=== PATIENT | male | born 1935 | race Caucasian/White ===

== ENCOUNTER → 2016-07-30 | Outpatient (CLI) | payer MEDICARE, OTHER ==
--- NOTE | 2016-07-30 11:58 | RADONC ---
RADIATION ONCOLOGY FOLLOWUP NOTE DATE: 07/30/2016 RADIATION ONCOLOGY CHART NUMBER: [id number]. DIAGNOSIS: Prostate cancer. STAGE: IIB, [id number]. ECOG PERFORMANCE STATUS: 0 FOLLOWUP NOTE: Mr. Doe is a very pleasant 80-year-old white male with the diagnosis of a stage IIB, [id number] poorly differentiated [place] score 9 (4-5) adenocarcinoma of prostate who is presenting to us today for routine followup visit 2 years and 1 month post completion of external beam radiation therapy. The patient presents today reporting that he is doing quite well with no complaints at this time related to his radiation therapy or disease. He has no urinary or bowel difficulties and no bone pain. REVIEW OF SYSTEMS: The patient's review of systems is otherwise noncontributory. He denies nausea, vomiting, fevers, chills, night sweats, diplopia, headaches, anxiety or depression, anorexia, weight loss, visual disturbances, chest pain, urinary or bowel difficulties, bone pain or neurological problems. PHYSICAL EXAMINATION: The patient is a well-developed, well-nourished male in no acute distress. HEENT exam is normocephalic, atraumatic. Extraocular movements are intact. There is no palpable cervical, supraclavicular, infraclavicular, axillary, or inguinal lymphadenopathy present. Lungs are clear to auscultation and percussion. Heart has a regular rate and rhythm. Abdomen is benign with no hepatosplenomegaly, masses, or tenderness. Rectal examination reveals a normal anal sphincter tone. His prostate is smooth with no evidence of nodularity. Skeletal examination reveals no tenderness to pressure or percussion of the bony skeleton. Extremities reveal no clubbing, cyanosis, or edema. Neurologic exam is grossly intact as is the remainder of the physical examination. ASSESSMENT: The patient is clinically CLAUDIA at this time and will be seen by us again in 6 months for further followup. He will also continue to be followed by his other physicians as well. cc: Omer Marshall MD, FACC Lionel Anna MD
== END ==
LOC: M ONCR 09:11
PROVIDERS: ATTEND Radiology Radiation Oncology
DX: C61 Malignant neoplasm of prostate (principal)

== ENCOUNTER → 2017-01-28 | Outpatient (CLI) | payer MEDICARE, OTHER ==
--- NOTE | 2017-01-28 09:40 | RADONC ---
RADIATION ONCOLOGY FOLLOWUP NOTE DATE: 02/15/2017 CHART NUMBER: [id number] DIAGNOSIS: Prostate cancer stage II B, [id number]. ECOG PERFORMANCE STATUS: 0. FOLLOWUP NOTE: Mr. Doe is a very pleasant 81-year-old white male with the diagnosis of a stage II B, [id number], poorly differentiated [place] score 9 (4-5) adenocarcinoma of the prostate who is presenting to us today for routine followup visit two and a half years post completion of external beam radiation therapy. The patient presents today reporting that he is doing quite well with no complaints at this time related to his radiation therapy or disease. He has no urinary or bowel difficulties. No bone pain. REVIEW OF SYSTEMS: The patient's review of systems is noncontributory. Denies nausea, vomiting, fevers, chills, night sweats, diplopia, headaches, anxiety or depression, anorexia, weight loss, visual disturbances, chest pain, urinary or bowel difficulties, bone pain, or neurological problems. PHYSICAL EXAMINATION: The patient is a well-developed, well-nourished male in no acute distress. HEENT exam is normocephalic, atraumatic. Extraocular movements are intact. There is no palpable cervical, supraclavicular, infraclavicular, axillary, or inguinal lymphadenopathy present. Lungs are clear to auscultation and percussion. Heart has a regular rate and rhythm. Abdomen is benign with no hepatosplenomegaly, masses, or tenderness. Rectal examination reveals a normal anal sphincter tone. His prostate is smooth with no evidence of nodularity. Skeletal examination reveals no tenderness to pressure or percussion of the bony skeleton. Extremities reveal no clubbing, cyanosis, or edema. Neurologic exam is grossly intact, as is the remainder of the physical examination. ASSESSMENT: The patient is clinically CLAUDIA at this time and will be seen by us again in 6 months for further followup. He will also continue to be followed by his other physicians as well. cc: Omer Marshall MD, FACC MD Choco Power MD
== END ==
LOC: M ONCR 08:57
PROVIDERS: ATTEND Radiology Radiation Oncology
DX: C61 Malignant neoplasm of prostate (principal)

== ENCOUNTER → 2017-08-12 | Outpatient (CLI) | payer MEDICARE, OTHER | LOC: M ONCR 09:47 | DX: C61 Malignant neoplasm of prostate (principal) | CPT/HCPCS: G0463 ==

== ENCOUNTER → 2018-02-10 | Outpatient (CLI) | payer MEDICARE, OTHER | LOC: M ONCR 09:37 | DX: Z08 Encounter for follow-up examination after completed treatment for malignant neoplasm (principal); Z85.46 Personal history of malignant neoplasm of prostate; Z92.3 Personal history of irradiation | CPT/HCPCS: G0463 ==

== ENCOUNTER → 2018-08-18 | Outpatient (CLI) | payer MEDICARE, OTHER ==
--- NOTE | 2018-08-19 10:40 | RADONC ---
RADIATION ONCOLOGY FOLLOW UP NOTE DATE: 08/18/2018 CHART NUMBER: [id number] DIAGNOSIS: Prostate cancer. STAGE: IIB, [id number]. ECOG PERFORMANCE STATUS: 0 Mr. Oviedo is an elderly gentleman with a diagnosis of stage II B, poorly differentiated adenocarcinoma of the prostate stage [id number] with a [place] score of 9 (4+5). He presents today for a routine followup almost 5 years after having completed his course of external beam radiotherapy. REVIEW OF SYSTEMS: He denies any nausea, vomiting, diarrhea, dysuria, hematuria or blood per rectum. He also denies any issues with night sweats, fevers, chills, diplopia, headache, anxiety, depression, anorexia, weight loss, visual disturbances, chest pain or urinary or bowel issues. He describes no bone pain or neurologic problems. EXAMINATION FINDINGS: He is a well-developed, well-nourished male who looks appropriate for his stated age. HEENT: Normocephalic. Lungs: Clear to auscultation percussion. Heart: Regular without murmurs. Abdomen: Without evidence of hepatomegaly, masses or deep abdominal tenderness. Extremities: Without cyanosis, clubbing or edema. Rectal Examination: Reveals a normal anal sphincter tone with a smooth prostate without nodularity. Skeletal system: Reveals no percussive tenderness. Neurologic Examination: Physiologic. IMPRESSION: No evidence of clinical disease recurrence although the PSA has risen from 0.02 to the most recent PSA of 0.11. He is also seeing Dr. Anna in a few months. PLAN: We would like to see him again in approximately 1 year or p.r.n. and he was advised to return at that time with a PSA. Thank you for allowing us the opportunity of participation in the management of this patient. cc: Omer Marshall MD, [facility] MD Choco Power MD [facility]
== END ==
LOC: M ONCR 08:38
PROVIDERS: ATTEND Radiology Radiation Oncology
DX: Z08 Encounter for follow-up examination after completed treatment for malignant neoplasm (principal); Z92.3 Personal history of irradiation

== ENCOUNTER 2022-05-22 00:13 | Inpatient (IN) | payer MEDICARE, OTHER ==
[2022-05-22] VITALS (7 sets, daily range): BP systolic 120–144; BP diastolic 57–67
[~2022-05-22] VITALS: Ht 182.9 cm; Wt 84.6 kg
[2022-05-22] MEDS ORDERED: WARF-21 PO (00:49)
[2022-05-22] MEDS ORDERED: WARF-23 PO ×2 (00:49→04:52)
[2022-05-22] MEDS ORDERED: FLOM0.4C39 PO ×2 (00:49→04:52)
[2022-05-22] MEDS ORDERED: POTA1TAB23 PO (00:49)
[2022-05-22] MEDS ORDERED: FURO40TA2 PO ×2 (00:49→04:52)
[2022-05-22] MEDS ORDERED: DILT180C70 PO (00:51)
[2022-05-22] MEDS: MORPHINE 4 MG/ML 1ML VIAL IV ONE ×2 (01:05→01:26)
[2022-05-22 01:10] LABS: BASO % 0.3 % (0.0-1.0); EOS # 0.1 10^3/uL (0.0-0.5); EOS % 1.1 % (0.0-3.0); HEMATOCRIT 39.7 % (42.0-52.0); HEMOGLOBIN 13.7 g/dl (13.5-17.5); LYMPH # 1.4 10^3/uL (1.5-5.0); LYMPH % 15.5 % (24.0-44.0); MEAN CORPUSCULAR HEMOGLOBIN 30.9 pg (27.0-33.0); MEAN CORPUSCULAR HGB CONC 34.5 g/dl (32.0-36.5); MEAN CORPUSCULAR VOLUME 89.6 fl (80.0-96.0); MONO # 0.7 10^3/uL (0.0-0.8); NEUTROPHILS # 6.5 10^3/uL (1.5-8.5); PLATELET COUNT, AUTOMATED 223 10^3/uL (150-450); RED BLOOD COUNT 4.43 10^6/uL (4.30-6.10); WHITE BLOOD COUNT 8.8 10^3/uL (4.0-10.0)
[2022-05-22] MEDS ORDERED: ONDANSETRON 4MG 2ML VIAL IV ONE (01:10)
[2022-05-22 01:26] LABS: ALBUMIN 3.6 G/DL (3.2-5.2); ALKALINE PHOSPHATASE 74 U/L (46-116); ALT/SGPT 32 U/L (7.0-40); AST/SGOT 36 U/L (<34); BILIRUBIN,TOTAL 0.7 MG/DL (0.3-1.2); BLOOD UREA NITROGEN 14 MG/DL (9-23); CALCIUM LEVEL 8.3 MG/DL (8.3-10.6); CARBON DIOXIDE LEVEL 24 MMOL/L (20-31); CHLORIDE LEVEL 95 MMOL/L (98-107); CK-MB VALUE MASS 6.5 NG/ML (<3.6); CPK CREATINE PHOSPHOKINASE 257 U/L (46-171); CREATININE FOR GFR 1.07 MG/DL (0.70-1.30); GLOMERULAR FILTRATION RATE > 60.0 (>35); GLUCOSE, FASTING 143 MG/DL (74-106); MAGNESIUM LEVEL 1.7 MG/DL (1.8-2.4); MB/CK RELATIVE INDEX 2.52 (< OR =4); POTASSIUM SERUM 3.3 MMOL/L (3.5-5.1); SODIUM LEVEL 131 MMOL/L (136-145); TOTAL PROTEIN 6.4 G/DL (5.7-8.2)
[2022-05-22 01:27] LABS: PARTIAL THROMBOPLASTIN TIME 36.2 SECONDS (24.8-34.2)
[2022-05-22 01:31] LABS: INR 3.06; PROTHROMBIN TIME 32.1 SECONDS (12.5-14.5)
[2022-05-22 01:41] LABS: RSV AMPLIFICATION NEGATIVE (NEGATIVE)
[2022-05-22] MEDS ORDERED: LIDOCAINE 5% (LIDODERM) PATCH TD ONE (01:50)
[2022-05-22] MEDS ORDERED: ANEXSIA, NORCO 7.5MG/325MG TABLET(HYDROCODONE/APAP) PO ONE (01:50)
[2022-05-22] MEDS ORDERED: ONDANSETRON 4MG 2ML VIAL IV PRN (02:45)
[2022-05-22 03:10] LABS: CK-MB VALUE MASS 5.5 NG/ML (<3.6); MB/CK RELATIVE INDEX 2.3 (< OR =4)
[2022-05-22] MEDS ORDERED: PHYTONADIONE INJection 10 MG in NS 50 ML IV ONE (03:30)
[2022-05-22] MEDS: NS 1,000 ML IV SCH ×2 (03:37→12:00)
[2022-05-22] MEDS: MORPHINE 4 MG/ML 1ML VIAL IV PRN ×2 (03:38→06:06)
[2022-05-22] MEDS ORDERED: LORazepam 2 MG TAB PO PRN (03:40)
[2022-05-22] MEDS ORDERED: MAGN400T35 PO ×2 (04:52→06:42)
[2022-05-22] MEDS ORDERED: KCL 20MEQ IN 100ML SWI (KRUN) 20 MEQ in IV 1 EA IV ONE ×4 (05:15)
[2022-05-22] MEDS ORDERED: MAGNESIUM OXIDE 400MG TAB (MAG-OX) PO ONE (05:15)
[2022-05-22] MEDS: POTASSIUM CHLORIDE 10MEQ SR TABLET PO ONE ×2 (05:15→06:05)
[2022-05-22] MEDS ORDERED: POTASSIUM CHLORIDE 10MEQ SR TABLET PO ONE (05:55)
[2022-05-22] MEDS ORDERED: REMDESIVIR 200 MG in NS 250 ML IV ONE (06:00)
[2022-05-22] MEDS ORDERED: KCL 10MEQ/100ML SWI (KRUN) 10 MEQ in IV 1 EA IV ONE ×2 (06:00→07:00)
[2022-05-22] MEDS ORDERED: HOME MED LIST COMPLETE! XX SCH (06:45)
[2022-05-22] MEDS: IPRATROPIUM 0.5MG/ALBUTEROL 2.5MG INH SOL UD 3ML (DUONEB) NEB SCH ×4 (07:31→19:50)
[2022-05-22] MEDS ORDERED: SODIUM CHLORIDE 0.9% INJ 10 ML SYR IV ONE (08:00)
[2022-05-22] MEDS: FOLIC ACID 1MG TAB PO SCH (08:43)
[2022-05-22] MEDS: THIAMINE 100 MG TAB PO SCH ×2 (08:43→20:58)
[2022-05-22] MEDS: DOCUSATE SODIUM 100MG CAPSULE PO SCH ×2 (08:43→20:58)
[2022-05-22] MEDS: PANTOPRAZOLE 40MG VIAL IV SCH (08:43)
[2022-05-22] MEDS: MULTIVITAMINS/MINERALS THERAP 1 TAB PO SCH (08:43)
[2022-05-22 09:21] LABS: HEMATOCRIT 37.7 % (42.0-52.0); HEMOGLOBIN 12.8 g/dl (13.5-17.5); MEAN CORPUSCULAR HEMOGLOBIN 31.1 pg (27.0-33.0); MEAN CORPUSCULAR VOLUME 91.5 fl (80.0-96.0); PLATELET COUNT, AUTOMATED 220 10^3/uL (150-450); RED BLOOD COUNT 4.12 10^6/uL (4.30-6.10); WHITE BLOOD COUNT 10.1 10^3/uL (4.0-10.0)
[2022-05-22 09:35] LABS: INR 1.85; PROTHROMBIN TIME 21.7 SECONDS (12.5-14.5)
[2022-05-22 10:30] LABS: BLOOD UREA NITROGEN 13 MG/DL (9-23); CALCIUM LEVEL 7.8 MG/DL (8.3-10.6); CARBON DIOXIDE LEVEL 27 MMOL/L (20-31); CHLORIDE LEVEL 96 MMOL/L (98-107); CREATININE FOR GFR 0.96 MG/DL (0.70-1.30); GLOMERULAR FILTRATION RATE > 60.0 (>35); GLUCOSE, FASTING 139 MG/DL (74-106); POTASSIUM SERUM 4.2 MMOL/L (3.5-5.1); SODIUM LEVEL 131 MMOL/L (136-145)
[2022-05-22] MEDS: MORPHINE 2 MG/ML 1ML VIAL IV PRN (21:03)
[2022-05-23] VITALS (11 sets, daily range): BP systolic 108–147; BP diastolic 58–71
[2022-05-23] MEDS: MORPHINE 2 MG/ML 1ML VIAL IV PRN ×2 (01:47→09:36)
[2022-05-23] MEDS: REMDESIVIR 100 MG in NS 250 ML IV SCH (04:58)
[2022-05-23 05:58] LABS: BASO % 0.2 % (0.0-1.0); EOS % 0.1 % (0.0-3.0); HEMATOCRIT 35.2 % (42.0-52.0); HEMOGLOBIN 11.6 g/dl (13.5-17.5); LYMPH # 0.5 10^3/uL (1.5-5.0); LYMPH % 4.8 % (24.0-44.0); MEAN CORPUSCULAR HEMOGLOBIN 30.6 pg (27.0-33.0); MEAN CORPUSCULAR VOLUME 92.9 fl (80.0-96.0); MONO # 1.2 10^3/uL (0.0-0.8); MONO % 10.5 % (2.0-8.0); NEUTROPHILS # 9.4 10^3/uL (1.5-8.5); PLATELET COUNT, AUTOMATED 198 10^3/uL (150-450); RED BLOOD COUNT 3.79 10^6/uL (4.30-6.10); WHITE BLOOD COUNT 11.2 10^3/uL (4.0-10.0)
[2022-05-23 06:10] LABS: INR 1.47; PROTHROMBIN TIME 18.1 SECONDS (12.5-14.5)
[2022-05-23] MEDS: SODIUM CHLORIDE 0.9% INJ 10 ML SYR IV SCH (06:50)
[2022-05-23 07:26] LABS: ALBUMIN 2.9 G/DL (3.2-5.2); ALKALINE PHOSPHATASE 50 U/L (46-116); ALT/SGPT 20 U/L (7.0-40); AST/SGOT 22 U/L (<34); BILIRUBIN,DIRECT 0.5 MG/DL (<0.4); BILIRUBIN,TOTAL 0.9 MG/DL (0.3-1.2); BLOOD UREA NITROGEN 10 MG/DL (9-23); CALCIUM LEVEL 7.9 MG/DL (8.3-10.6); CARBON DIOXIDE LEVEL 24 MMOL/L (20-31); CHLORIDE LEVEL 98 MMOL/L (98-107); CREATININE FOR GFR 0.85 MG/DL (0.70-1.30); GLOMERULAR FILTRATION RATE > 60.0 (>35); GLUCOSE, FASTING 113 MG/DL (74-106); MAGNESIUM LEVEL 1.8 MG/DL (1.8-2.4); POTASSIUM SERUM 4.4 MMOL/L (3.5-5.1); SODIUM LEVEL 131 MMOL/L (136-145); TOTAL PROTEIN 5.4 G/DL (5.7-8.2)
[2022-05-23] MEDS: IPRATROPIUM 0.5MG/ALBUTEROL 2.5MG INH SOL UD 3ML (DUONEB) NEB SCH ×4 (08:08→19:54)
[2022-05-23] MEDS: PANTOPRAZOLE 40MG VIAL IV SCH (09:19)
[2022-05-23] MEDS: FOLIC ACID 1MG TAB PO SCH (09:19)
[2022-05-23] MEDS: MULTIVITAMINS/MINERALS THERAP 1 TAB PO SCH (09:19)
[2022-05-23] MEDS: DOCUSATE SODIUM 100MG CAPSULE PO SCH ×2 (09:19→22:31)
[2022-05-23] MEDS: THIAMINE 100 MG TAB PO SCH ×2 (09:20→22:31)
[2022-05-23] MEDS ORDERED: diphenhydrAMINE 50MG/ML VIAL IV PRN (12:25)
[2022-05-23] MEDS ORDERED: NALOXONE INJ 0.4MG/1ML VIAL IV PRN (12:25)
[2022-05-23] MEDS ORDERED: METOCLOPRAMIDE INJ 10MG/2ML VIAL IV PRN (12:25)
[2022-05-23] MEDS ORDERED: NALBUPHINE HCL 10 MG/ML 1ML AMP IV PRN (12:25)
[2022-05-23] MEDS ORDERED: EPIDURAL/PCA KEYS XX PRN (12:25)
[2022-05-23] MEDS ORDERED: ONDANSETRON 4MG 2ML VIAL IV PRN (12:25)
[2022-05-23] MEDS ORDERED: FENTANYL/BUPIVACAINE/NACL BAG 250 ML EPIDURAL SCH (15:00)
[2022-05-24] VITALS: BP 145/70
[2022-05-24] MEDS: MORPHINE 4 MG/ML 1ML VIAL IV PRN (03:55)
[2022-05-24 04:00] VITALS: BP 150/70
[2022-05-24] MEDS: REMDESIVIR 100 MG in NS 250 ML IV SCH (05:06)
[2022-05-24] MEDS: SODIUM CHLORIDE 0.9% INJ 10 ML SYR IV SCH (05:06)
[2022-05-24 05:49] LABS: BASO % 0.2 % (0.0-1.0); HEMATOCRIT 33.9 % (42.0-52.0); HEMOGLOBIN 11.5 g/dl (13.5-17.5); LYMPH # 0.9 10^3/uL (1.5-5.0); LYMPH % 9.7 % (24.0-44.0); MEAN CORPUSCULAR HEMOGLOBIN 31.2 pg (27.0-33.0); MEAN CORPUSCULAR HGB CONC 33.9 g/dl (32.0-36.5); MEAN CORPUSCULAR VOLUME 91.9 fl (80.0-96.0); MONO # 1.3 10^3/uL (0.0-0.8); MONO % 13.3 % (2.0-8.0); NEUTROPHILS # 7.3 10^3/uL (1.5-8.5); NEUTROPHILS % 76.1 % (36.0-66.0); PLATELET COUNT, AUTOMATED 209 10^3/uL (150-450); RED BLOOD COUNT 3.69 10^6/uL (4.30-6.10); WHITE BLOOD COUNT 9.6 10^3/uL (4.0-10.0)
[2022-05-24 06:01] LABS: INR 1.61; PROTHROMBIN TIME 19.5 SECONDS (12.5-14.5)
[2022-05-24 06:24] LABS: ALBUMIN 2.6 G/DL (3.2-5.2); ALKALINE PHOSPHATASE 51 U/L (46-116); ALT/SGPT 19 U/L (7.0-40); AST/SGOT 20 U/L (<34); BILIRUBIN,TOTAL 1.3 MG/DL (0.3-1.2); BLOOD UREA NITROGEN 15 MG/DL (9-23); CARBON DIOXIDE LEVEL 25 MMOL/L (20-31); CHLORIDE LEVEL 99 MMOL/L (98-107); CREATININE FOR GFR 0.85 MG/DL (0.70-1.30); GLOMERULAR FILTRATION RATE > 60.0 (>35); GLUCOSE, FASTING 121 MG/DL (74-106); POTASSIUM SERUM 4.3 MMOL/L (3.5-5.1); SODIUM LEVEL 134 MMOL/L (136-145)
[2022-05-24] MEDS: IPRATROPIUM 0.5MG/ALBUTEROL 2.5MG INH SOL UD 3ML (DUONEB) NEB SCH (07:24)
[2022-05-24 08:00] VITALS: BP 148/68
[2022-05-24] MEDS ORDERED: MAG SULF 1GM/100ML (MAG RUN) 1 GM in IV 1 EA IV ONE (09:00)
[2022-05-24] MEDS ORDERED: CALCIUM GLUCONATE 1,000 MG in D5W MINI-BAG PLUS 100 ML IV ONE (09:00)
== END 2022-05-24 12:18 | disposition expired | DRG 199 ==
LOC: M ED 00:13 → EDBD 00:13 → M ED INP 02:41 → ENRESERV 04:18 → M PCU 05:35
PROVIDERS: ADMIT Surgery; ATTEND General Practice
DX: S27.2XXA Traumatic hemopneumothorax, initial encounter (principal); U07.1 COVID-19; I62.03 Nontraumatic chronic subdural hemorrhage; I48.20 Chronic atrial fibrillation, unspecified; E87.1 Hypo-osmolality and hyponatremia; J90 Pleural effusion, not elsewhere classified; S27.321A Contusion of lung, unilateral, initial encounter; I47.21 Torsades de pointes; S22.42XA Multiple fractures of ribs, left side, initial encounter for closed fracture; I49.01 Ventricular fibrillation; D69.6 Thrombocytopenia, unspecified; F32.A Depression, unspecified; I50.9 Heart failure, unspecified; I11.0 Hypertensive heart disease with heart failure; F10.10 Alcohol abuse, uncomplicated; R07.81 Pleurodynia; R42 Dizziness and giddiness; Z95.0 Presence of cardiac pacemaker; R55 Syncope and collapse; E87.6 Hypokalemia; E83.42 Hypomagnesemia; Z85.46 Personal history of malignant neoplasm of prostate; I27.20 Pulmonary hypertension, unspecified; Z66 Do not resuscitate; Z88.0 Allergy status to penicillin; Z79.899 Other long term (current) drug therapy; Z79.01 Long term (current) use of anticoagulants; Z92.3 Personal history of irradiation; W18.30XA Fall on same level, unspecified, initial encounter; Y92.023 Bedroom in mobile home as the place of occurrence of the external cause